=== PATIENT | female | born 1965 | race Caucasian/White ===

== ENCOUNTER 2017-08-24 17:33 | Inpatient (IN) ==
[2017-08-24] MEDS ORDERED: SODIUM CHLORIDE 0.9% 1,000 ML IV STA (17:56)
[2017-08-24] MEDS ORDERED: INSULIN REGULAR 100 UNIT/ML IV STA ×2 (17:59→19:55)
[2017-08-24] MEDS ORDERED: ONDANSETRON 4 MG/2 ML VIAL IV STA (18:03)
[2017-08-24] MEDS ORDERED: MORPHINE 4 MG/1 ML VIAL IV STA (18:03)
[2017-08-24 18:46] LABS: Basophils % 0.2 % (0.0-0.8); Eosinophils # 0.1 10*3/uL (0.0-0.87); Eosinophils % 0.4 % (0.00-10.9); Hematocrit 38.2 VOL% (35.7-47.0); Hemoglobin 13.2 GM/DL (12.0-16.0); Immature Granulocytes % 0.6 %; Immature Granulocytes Absolute 0.08 #; Lymphocytes # 2.1 10*3/uL (1.4-4.0); Lymphocytes % 16.4 % (21.3-54.2); Mean Corpuscular HGB Conc 34.6 GM/DL (32-36); Mean Corpuscular Hemoglobin 32 PG (27-34); Mean Corpuscular Volume 91.4 FL (87-102); Mean Platelet Volume 10.8 FL (9.6-12.0); Monocytes # 0.7 10*3/uL (0.11-0.8); Monocytes % 5.6 % (1.7-12.7); Neutrophils # 9.9 10*3/uL (1.4-7.4); Neutrophils % 76.8 % (38.7-73.9); Platelet Count 241 T/CUMM (130-400); Red Blood Count 4.18 MC/CUMM (3.8-5.5); Red Cell Distribution Width 13.5 % (9.3-17.3)
[2017-08-24 18:54] LABS: Apearance,Urine Slightly Hazy (Clear); Bacteria,Urine Occasional /HPF (Few); Bilirubin,Urine Negative (Negative); Blood, Urine Moderate mg/dL (Negative); Glucose,Urine (UA) >=500 mg/dL (Negative); Ketones,Urine 20 mg/dL (Negative); Nitrite,Urine Negative (Negative); Protein,Urine Negative; RBC,Urine 2 /HPF (0-4); Squamous Epithelial Cell,Urine Occasional /HPF (0-10); Urine Color Straw (Yellow); Urine Specific Gravity 1.033 (1.001-1.035); Urine Urobilinogen < 2.0 EU/DL (0.2-1.0); WBC,Urine 11 /HPF (0-6)
[2017-08-24 19:21] LABS: Albumin 3.2 G/DL (3.4-5.0); Bilirubin,Total 0.6 MG/DL (0.2-1.0); Calcium 8.6 MG/DL (8.5-10.1); Total Protein 7.2 G/DL (6.4-8.3)
[2017-08-24 19:22] LABS: Osmolality,Calculated 287.1 MOS/KG (273-304)
[2017-08-24] MEDS ORDERED: VANCOMYCIN INJ 1,000 MG in SODIUM CHLORIDE 0.9% 250 ML IV STA (19:48)
[2017-08-24] MEDS ORDERED: CEFEPIME 2,000 MG in SODIUM CHLORIDE 0.9% 100 ML IV STA (19:48)
[2017-08-24] MEDS ORDERED: INSULIN GLARGINE 100 UNIT/ML SUBCUT STA (21:14)
[2017-08-24] MEDS ORDERED: DEXTROSE 50% 25 GM/50 ML VIAL IV PRN (21:35)
[2017-08-24] MEDS ORDERED: ONDANSETRON 4 MG/2 ML VIAL IV PRN (21:35)
[2017-08-24] MEDS ORDERED: GLUCAGON 1 MG VIAL IM PRN (21:35)
[2017-08-24] MEDS ORDERED: ACETAMINOPHEN 325 MG TABLET PO PRN (21:35)
[2017-08-24] MEDS: INSULIN REGULAR 100 UNIT/ML SUBCUT SCH (22:00)
[2017-08-24] MEDS ORDERED: CILOSTAZOL 50 MG TABLET PO SCH (22:00)
[2017-08-24] MEDS: SODIUM CHLORIDE 0.9% 1,000 ML IV SCH (22:04)
[2017-08-24] MEDS: ASPIRIN CHEW 81 MG TABLET PO SCH (22:04)
[2017-08-24] MEDS ORDERED: INSULIN REGULAR 100 UNIT/ML SUBCUT STA (23:27)
[2017-08-25] MEDS: INSULIN REGULAR 100 UNIT/ML SUBCUT SCH ×5 (01:51→20:52)
[2017-08-25 04:23] LABS: Basophils % 0.4 % (0.0-0.8); Eosinophils # 0.1 10*3/uL (0.0-0.87); Eosinophils % 1.4 % (0.00-10.9); Hematocrit 35.4 VOL% (35.7-47.0); Hemoglobin 12.2 GM/DL (12.0-16.0); Immature Granulocytes % 0.5 %; Immature Granulocytes Absolute 0.04 #; Lymphocytes % 35.8 % (21.3-54.2); Mean Corpuscular HGB Conc 34.5 GM/DL (32-36); Mean Corpuscular Hemoglobin 31 PG (27-34); Mean Corpuscular Volume 90.3 FL (87-102); Mean Platelet Volume 10.7 FL (9.6-12.0); Monocytes # 0.6 10*3/uL (0.11-0.8); Monocytes % 6.7 % (1.7-12.7); Neutrophils # 4.6 10*3/uL (1.4-7.4); Neutrophils % 55.2 % (38.7-73.9); Platelet Count 203 T/CUMM (130-400); Red Blood Count 3.92 MC/CUMM (3.8-5.5); Red Cell Distribution Width 13.4 % (9.3-17.3); White Blood Count 8.4 T/CUMM (4-12)
[2017-08-25 04:37] LABS: Osmolality,Calculated 280.7 MOS/KG (273-304); Potassium 3.7 MMOL/L (3.5-5.1)
[2017-08-25] MEDS: SODIUM CHLORIDE 0.9% 1,000 ML IV SCH ×2 (06:10→16:12)
[2017-08-25] MEDS ORDERED: CEFEPIME 2,000 MG in SYRINGE 1 EACH IV SCH (08:00)
[2017-08-25] MEDS ORDERED: MIDAZOLAM 2 MG/2 ML VIAL ONE ×2 (09:05→09:54)
[2017-08-25] MEDS: PANTOPRAZOLE 40 MG TABLET PO SCH (09:05)
[2017-08-25] MEDS ORDERED: fentaNYL 100 MCG/2 ML VIAL ONE ×2 (09:05→09:54)
[2017-08-25] MEDS: CEFEPIME 2,000 MG in SYRINGE 1 EACH IV SCH ×2 (09:05→20:53)
[2017-08-25] MEDS ORDERED: HEPARIN/NACL 0.9% 2 UNITS/ML 2,000 ML IV ONE (09:05)
[2017-08-25] MEDS: VANCOMYCIN INJ 1,000 MG in SODIUM CHLORIDE 0.9% 250 ML IV SCH ×2 (09:06→21:04)
[2017-08-25] MEDS ORDERED: fentaNYL 100 MCG/2 ML VIAL IV ONE (09:31)
[2017-08-25] MEDS ORDERED: MIDAZOLAM 2 MG/2 ML VIAL IV ONE (09:31)
[2017-08-25] MEDS ORDERED: DIAZEPAM 5 MG TABLET PO ONE (09:46)
[2017-08-25] MEDS ORDERED: HEPARIN 5,000 UNIT/1 ML VIAL ONE (09:54)
[2017-08-25] MEDS ORDERED: ONDANSETRON 4 MG/2 ML VIAL ONE (09:55)
[2017-08-25] MEDS ORDERED: HEPARIN/NACL 0.9% 2 UNITS/ML 1,000 ML IV ONE (10:20)
[2017-08-25] MEDS: INSULIN GLARGINE 100 UNIT/ML SUBCUT SCH ×2 (11:27→20:51)
[2017-08-25] MEDS: CLOPIDOGREL 75 MG TABLET PO SCH (14:04)
[2017-08-25] MEDS: MORPHINE 4 MG/1 ML VIAL IV PRN (17:51)
[2017-08-25] MEDS: ASPIRIN CHEW 81 MG TABLET PO SCH (20:51)
[2017-08-26] MEDS: INSULIN REGULAR 100 UNIT/ML SUBCUT SCH ×6 (01:40→20:44)
[2017-08-26] MEDS ORDERED: fentaNYL 100 MCG/2 ML VIAL ONE (10:08)
[2017-08-26] MEDS ORDERED: MIDAZOLAM 2 MG/2 ML VIAL ONE (10:08)
[2017-08-26] MEDS ORDERED: PROPOFOL 200 MG/20 ML VIAL IV ONE (10:09)
[2017-08-26] MEDS ORDERED: SEVOFLURANE 1 UNIT/15 MINUTE INH ONE (10:09)
[2017-08-26] MEDS ORDERED: KETOROLAC 30 MG/1 ML VIAL ONE (10:09)
[2017-08-26] MEDS ORDERED: ACETAMINOPHEN 1,000 MG/100 ML VIAL IV ONE (10:09)
[2017-08-26] MEDS ORDERED: PHENYLEPHRINE 1 MG/10 ML SYRINGE IV ONE (10:10)
[2017-08-26] MEDS ORDERED: ONDANSETRON 4 MG/2 ML VIAL ONE (10:10)
[2017-08-26] MEDS ORDERED: DEXTROSE 50% 25 GM/50 ML VIAL IV PRN (10:53)
[2017-08-26] MEDS ORDERED: GLUCAGON 1 MG VIAL IM PRN (10:53)
[2017-08-26] MEDS: SODIUM CHLORIDE 0.9% 1,000 ML IV SCH ×3 (11:33→16:34)
[2017-08-26] MEDS: PANTOPRAZOLE 40 MG TABLET PO SCH (11:34)
[2017-08-26] MEDS: VANCOMYCIN INJ 1,000 MG in SODIUM CHLORIDE 0.9% 250 ML IV SCH ×2 (11:34→23:05)
[2017-08-26] MEDS: CLOPIDOGREL 75 MG TABLET PO SCH (11:34)
[2017-08-26] MEDS: CEFEPIME 2,000 MG in SYRINGE 1 EACH IV SCH ×2 (11:35→20:44)
[2017-08-26] MEDS: INSULIN GLARGINE 100 UNIT/ML SUBCUT SCH ×2 (11:35→20:44)
[2017-08-26] MEDS ORDERED: VANCOMYCIN INJ 1,000 MG in SODIUM CHLORIDE 0.9% 250 ML IV ONE (18:00)
[2017-08-26] MEDS: ROSUVASTATIN 20 MG TABLET PO SCH (20:45)
[2017-08-26] MEDS: ASPIRIN CHEW 81 MG TABLET PO SCH (20:45)
[2017-08-26] MEDS: MORPHINE 4 MG/1 ML VIAL IV PRN (23:11)
[2017-08-27] MEDS: INSULIN REGULAR 100 UNIT/ML SUBCUT SCH ×6 (00:04→20:16)
[2017-08-27 06:02] LABS: Risk Ratio 3.97; Thyroid Stimulating Hormone 1.78 uIU/ml (0.358-3.74); VLDL CHOLESTEROL 26.8 MG/DL
[2017-08-27] MEDS: CEFEPIME 2,000 MG in SYRINGE 1 EACH IV SCH ×2 (08:32→20:16)
[2017-08-27] MEDS: INSULIN GLARGINE 100 UNIT/ML SUBCUT SCH ×2 (08:33→20:16)
[2017-08-27] MEDS: CHOLECALCIFEROL 1,000 UNIT TABLET PO SCH (08:35)
[2017-08-27] MEDS: PANTOPRAZOLE 40 MG TABLET PO SCH (08:35)
[2017-08-27] MEDS: CLOPIDOGREL 75 MG TABLET PO SCH (08:35)
[2017-08-27] MEDS: MORPHINE 4 MG/1 ML VIAL IV PRN ×3 (08:52→23:53)
[2017-08-27] MEDS: VANCOMYCIN INJ 1,000 MG in SODIUM CHLORIDE 0.9% 250 ML IV SCH ×2 (11:28→23:18)
[2017-08-27] MEDS: SODIUM CHLORIDE 0.9% 1,000 ML IV SCH ×2 (11:29→20:17)
[2017-08-27] MEDS: ROSUVASTATIN 20 MG TABLET PO SCH (20:15)
[2017-08-27] MEDS: ASPIRIN CHEW 81 MG TABLET PO SCH (20:15)
[2017-08-28] MEDS: INSULIN REGULAR 100 UNIT/ML SUBCUT SCH ×7 (00:51→23:55)
[2017-08-28 07:24] LABS: Basophils % 0.2 % (0.0-0.8); Eosinophils # 0.1 10*3/uL (0.0-0.87); Eosinophils % 1.7 % (0.00-10.9); Immature Granulocytes % 0.6 %; Immature Granulocytes Absolute 0.03 #; Lymphocytes # 1.6 10*3/uL (1.4-4.0); Lymphocytes % 30.5 % (21.3-54.2); Mean Corpuscular HGB Conc 34.7 GM/DL (32-36); Mean Corpuscular Hemoglobin 32 PG (27-34); Mean Corpuscular Volume 92.6 FL (87-102); Mean Platelet Volume 10.4 FL (9.6-12.0); Monocytes # 0.3 10*3/uL (0.11-0.8); Monocytes % 6.3 % (1.7-12.7); Neutrophils # 3.2 10*3/uL (1.4-7.4); Neutrophils % 60.7 % (38.7-73.9); Red Blood Count 3.24 MC/CUMM (3.8-5.5); Red Cell Distribution Width 14.1 % (9.3-17.3); White Blood Count 5.2 T/CUMM (4-12)
[2017-08-28 07:24] LABS: Calcium 7.8 MG/DL (8.5-10.1); Potassium 3.6 MMOL/L (3.5-5.1)
[2017-08-28 07:32] LABS: Hemoglobin 10.4 GM/DL (12.0-16.0); Platelet Count 173 T/CUMM (130-400)
[2017-08-28] MEDS: CHOLECALCIFEROL 1,000 UNIT TABLET PO SCH (08:29)
[2017-08-28] MEDS: MORPHINE 4 MG/1 ML VIAL IV PRN ×2 (08:29→20:24)
[2017-08-28] MEDS: CEFEPIME 2,000 MG in SYRINGE 1 EACH IV SCH ×2 (08:30→20:18)
[2017-08-28] MEDS: PANTOPRAZOLE 40 MG TABLET PO SCH (08:35)
[2017-08-28] MEDS: CLOPIDOGREL 75 MG TABLET PO SCH (08:35)
[2017-08-28] MEDS: SODIUM CHLORIDE 0.9% 1,000 ML IV SCH (09:17)
[2017-08-28] MEDS: INSULIN GLARGINE 100 UNIT/ML SUBCUT SCH ×2 (10:56→20:18)
[2017-08-28] MEDS: VANCOMYCIN INJ 1,000 MG in SODIUM CHLORIDE 0.9% 250 ML IV SCH ×2 (12:48→20:17)
[2017-08-28] MEDS: FUROSEMIDE 20 MG/2 ML VIAL IV SCH (16:27)
[2017-08-28] MEDS: ASPIRIN CHEW 81 MG TABLET PO SCH (20:19)
[2017-08-28] MEDS: ROSUVASTATIN 20 MG TABLET PO SCH (20:19)
[2017-08-29] MEDS: INSULIN REGULAR 100 UNIT/ML SUBCUT SCH ×5 (03:18→21:57)
[2017-08-29] MEDS: VANCOMYCIN INJ 1,000 MG in SODIUM CHLORIDE 0.9% 250 ML IV SCH ×2 (04:10→13:47)
[2017-08-29 08:05] LABS: Basophils % 0.3 % (0.0-0.8); Eosinophils # 0.1 10*3/uL (0.0-0.87); Eosinophils % 1.7 % (0.00-10.9); Hematocrit 30.3 VOL% (35.7-47.0); Hemoglobin 10.2 GM/DL (12.0-16.0); Immature Granulocytes % 0.7 %; Immature Granulocytes Absolute 0.04 #; Lymphocytes # 1.7 10*3/uL (1.4-4.0); Mean Corpuscular HGB Conc 33.7 GM/DL (32-36); Mean Corpuscular Hemoglobin 32 PG (27-34); Mean Corpuscular Volume 93.5 FL (87-102); Mean Platelet Volume 10.4 FL (9.6-12.0); Monocytes # 0.3 10*3/uL (0.11-0.8); Monocytes % 5.3 % (1.7-12.7); Neutrophils # 3.8 10*3/uL (1.4-7.4); Platelet Count 210 T/CUMM (130-400); Red Blood Count 3.24 MC/CUMM (3.8-5.5)
[2017-08-29 08:37] LABS: Calcium 7.7 MG/DL (8.5-10.1); Potassium 3.5 MMOL/L (3.5-5.1)
[2017-08-29] MEDS: CHOLECALCIFEROL 1,000 UNIT TABLET PO SCH (10:18)
[2017-08-29] MEDS: PANTOPRAZOLE 40 MG TABLET PO SCH (10:18)
[2017-08-29] MEDS: CEFEPIME 2,000 MG in SYRINGE 1 EACH IV SCH (10:18)
[2017-08-29] MEDS: CLOPIDOGREL 75 MG TABLET PO SCH (10:18)
[2017-08-29] MEDS: INSULIN GLARGINE 100 UNIT/ML SUBCUT SCH ×2 (10:18→21:54)
[2017-08-29] MEDS: FUROSEMIDE 20 MG/2 ML VIAL IV SCH (10:19)
[2017-08-29] MEDS: MORPHINE 4 MG/1 ML VIAL IV PRN ×3 (11:12→21:55)
[2017-08-29] MEDS: NYSTATIN 500,000 UNIT/5 ML UDCUP SWISH/SWAL SCH ×4 (11:12→21:54)
[2017-08-29] MEDS: SODIUM HYPOCHLORITE 0.25% IRRIG 473 ML BOTTLE TOP SCH (11:14)
[2017-08-29] MEDS: ASPIRIN CHEW 81 MG TABLET PO SCH (21:54)
[2017-08-29] MEDS: ROSUVASTATIN 20 MG TABLET PO SCH (21:54)
[2017-08-30] MEDS: INSULIN REGULAR 100 UNIT/ML SUBCUT SCH ×6 (01:10→22:00)
[2017-08-30 07:04] LABS: Basophils % 0.2 % (0.0-0.8); Eosinophils # 0.1 10*3/uL (0.0-0.87); Eosinophils % 2.3 % (0.00-10.9); Hematocrit 31.6 VOL% (35.7-47.0); Hemoglobin 10.6 GM/DL (12.0-16.0); Immature Granulocytes % 0.4 %; Immature Granulocytes Absolute 0.02 #; Lymphocytes % 39.8 % (21.3-54.2); Mean Corpuscular HGB Conc 33.5 GM/DL (32-36); Mean Corpuscular Hemoglobin 31 PG (27-34); Mean Corpuscular Volume 92.1 FL (87-102); Mean Platelet Volume 10.3 FL (9.6-12.0); Monocytes # 0.3 10*3/uL (0.11-0.8); Monocytes % 6.2 % (1.7-12.7); Neutrophils # 2.6 10*3/uL (1.4-7.4); Neutrophils % 51.1 % (38.7-73.9); Platelet Count 233 T/CUMM (130-400); Red Blood Count 3.43 MC/CUMM (3.8-5.5); White Blood Count 5.1 T/CUMM (4-12)
[2017-08-30 07:23] LABS: Calcium 7.8 MG/DL (8.5-10.1); Osmolality,Calculated 283.7 MOS/KG (273-304); Potassium 3.7 MMOL/L (3.5-5.1)
[2017-08-30] MEDS: NYSTATIN 500,000 UNIT/5 ML UDCUP SWISH/SWAL SCH ×4 (08:32→21:59)
[2017-08-30] MEDS: MORPHINE 4 MG/1 ML VIAL IV PRN ×2 (08:33→22:06)
[2017-08-30] MEDS: CHOLECALCIFEROL 1,000 UNIT TABLET PO SCH (08:34)
[2017-08-30] MEDS: PANTOPRAZOLE 40 MG TABLET PO SCH (08:34)
[2017-08-30] MEDS: INSULIN GLARGINE 100 UNIT/ML SUBCUT SCH ×2 (08:34→21:59)
[2017-08-30] MEDS: CLOPIDOGREL 75 MG TABLET PO SCH (08:34)
[2017-08-30] MEDS ORDERED: LEVOFLOXACIN 500 MG TABLET PO SCH (09:00)
[2017-08-30] MEDS: FUROSEMIDE 20 MG/2 ML VIAL IV SCH (10:58)
[2017-08-30] MEDS: SODIUM HYPOCHLORITE 0.25% IRRIG 473 ML BOTTLE TOP SCH (11:08)
[2017-08-30] MEDS: SULFAMETHOX/TRIMETHOPRIM 800-160 MG TABLET PO SCH (21:59)
[2017-08-30] MEDS: ROSUVASTATIN 20 MG TABLET PO SCH (21:59)
[2017-08-30] MEDS: ASPIRIN CHEW 81 MG TABLET PO SCH (21:59)
[2017-08-31] MEDS: INSULIN REGULAR 100 UNIT/ML SUBCUT SCH ×3 (01:16→09:08)
[2017-08-31 08:07] LABS: Basophils % 0.2 % (0.0-0.8); Eosinophils # 0.2 10*3/uL (0.0-0.87); Eosinophils % 2.4 % (0.00-10.9); Hematocrit 33.3 VOL% (35.7-47.0); Immature Granulocytes % 0.6 %; Immature Granulocytes Absolute 0.04 #; Lymphocytes # 1.9 10*3/uL (1.4-4.0); Lymphocytes % 28.2 % (21.3-54.2); Mean Corpuscular Hemoglobin 31 PG (27-34); Mean Corpuscular Volume 93.8 FL (87-102); Mean Platelet Volume 9.9 FL (9.6-12.0); Monocytes # 0.4 10*3/uL (0.11-0.8); Monocytes % 6.6 % (1.7-12.7); Neutrophils # 4.1 10*3/uL (1.4-7.4); Platelet Count 253 T/CUMM (130-400); Red Blood Count 3.55 MC/CUMM (3.8-5.5); Red Cell Distribution Width 13.8 % (9.3-17.3); White Blood Count 6.7 T/CUMM (4-12)
[2017-08-31 08:21] LABS: Calcium 8.5 MG/DL (8.5-10.1); Osmolality,Calculated 286.7 MOS/KG (273-304); Potassium 3.7 MMOL/L (3.5-5.1)
[2017-08-31 08:47] LABS: Eosinophils 3 % (0-10); Hypochromasia 1+; Lymphocytes 33 % (20-55); Ovalocytes Slight; Platelet Estimate Adequate; Segmented Neutrophils 61 % (50-85); Total Cells Counted 100
[2017-08-31 09:10] VITALS: BP 122/70
[2017-08-31] MEDS: PANTOPRAZOLE 40 MG TABLET PO SCH (09:53)
[2017-08-31] MEDS: NYSTATIN 500,000 UNIT/5 ML UDCUP SWISH/SWAL SCH (09:53)
[2017-08-31] MEDS: FUROSEMIDE 20 MG/2 ML VIAL IV SCH ×2 (09:53→10:00)
[2017-08-31] MEDS: CLOPIDOGREL 75 MG TABLET PO SCH (09:53)
[2017-08-31] MEDS: SULFAMETHOX/TRIMETHOPRIM 800-160 MG TABLET PO SCH (09:53)
[2017-08-31] MEDS: CHOLECALCIFEROL 1,000 UNIT TABLET PO SCH (09:53)
[2017-08-31] MEDS: SODIUM HYPOCHLORITE 0.25% IRRIG 473 ML BOTTLE TOP SCH (09:54)
[2017-08-31] MEDS: INSULIN GLARGINE 100 UNIT/ML SUBCUT SCH (09:54)
== END 2017-08-31 10:59 | disposition swing bed (61) | DRG 240 ==
LOC: EDBD → EDUNIT# → N.ED 17:33 → N.EDINP 20:01 → N.5E 08-25 05:18
PROVIDERS: ADMIT Hospitalist; ATTEND Hospitalist